=== PATIENT | female | born 1985 | race African-American/Black ===

== ENCOUNTER 2019-12-06 23:12 | Emergency (ER) | payer MEDICAID ==
[~2019-12-06] VITALS: Ht 167.6 cm; Wt 81.6 kg
[2019-12-06 23:35] VITALS: BP 120/63
[2019-12-06] MEDS ORDERED: levETIRAcetam 500 MG TAB PO ONE (23:45)
[2019-12-06] MEDS ORDERED: ONDANSETRON ODT 4 MG TAB PO ONE (23:45)
[2019-12-06] MEDS ORDERED: ACETAMINOPHEN 325 MG TAB PO ONE (23:45)
[2019-12-06] MEDS ORDERED: TOPIRAMATE 25 MG TAB PO ONE (23:45)
[2019-12-07 00:52] LABS: Basophils # (auto) 0 10 ^3/uL (0-0.2); Basophils % (auto) 0.3 % (0.0-2.0); Eosinophils # (auto) 0 10 ^3/uL (0-0.8); Hematocrit 39.4 % (36.0-46.0); Hemoglobin 13.2 g/dL (12.2-16.2); Lymphocytes # (auto) 1.1 10 ^3/uL (0.4-5.4); Lymphocytes % (auto) 11.3 % (10.0-50.0); Mean Corpuscular Hemoglobin 29.3 pg (28.0-32.0); Mean Corpuscular Hgb Conc. 33.5 g/dL (32.0-36.0); Mean Corpuscular Volume 87.5 fL (80.0-100.0); Monocytes # (auto) 0.6 10 ^3/uL (0-1.3); Monocytes % (auto) 6.1 % (0.0-12.0); Neutrophils # (auto) 8.3 10 ^3/uL (1.6-8.6); Neutrophils % (auto) 82.3 % (37.0-80.0); Nucleated Red Blood Cells % 0.1 %; Platelet Count (auto) 307 10^3/uL (140-450); White Blood Cell 10.1 10^3/uL (4.4-10.8)
[2019-12-07 01:14] LABS: Albumin 4.3 g/dL (3.4-5.0); BUN/Creatinine Ratio 22.4; Calcium 9.1 mg/dL (8.5-10.1); Potassium 3.4 mmol/L (3.5-5.1)
[2019-12-07 01:17] LABS: Bilirubin, Total 0.5 mg/dL (0.2-1.0); Total Protein 8.3 g/dL (6.4-8.2)
[2019-12-07 01:38] LABS: Urine Bacteria FEW /hpf (None Seen); Urine Blood Negative /uL (Negative); Urine Hyaline Cast FEW /lpf (0 - 2); Urine Mucus FEW (None Seen); Urine Specific Gravity 1.017 (1.001-1.035); Urine WBC 7 /hpf (0 - 5)
[2019-12-07 01:50] LABS: Alcohol, Urine < 3.0 mg/dL (0-10); Amphetamine Screen, Urine NEGATIVE (NEGATIVE); Barbiturate Scree,Urine NEGATIVE (NEGATIVE); Benzodiazephine Screen, Urine NEGATIVE (NEGATIVE); Cannabinoid Screen, Urine POSITIVE (NEGATIVE); Cocaine Screen, Urine NEGATIVE (NEGATIVE); Opiate Scree,Urine NEGATIVE (NEGATIVE); Phencyclidine Screen, Urine NEGATIVE (NEGATIVE)
[2019-12-07] MEDS ORDERED: POTASSIUM CHL 20 Meq TABLET PO ONE ×2 (02:00→02:03)
[2019-12-07] MEDS ORDERED: HYDROcodone-ACET 5/325MG TAB PO ONE (02:15)
== END 2019-12-07 02:43 ==
LOC: ER 23:15
DX: S16.1XXA Strain of muscle, fascia and tendon at neck level, initial encounter (principal); S60.212A Contusion of left wrist, initial encounter; S60.211A Contusion of right wrist, initial encounter; S39.012A Strain of muscle, fascia and tendon of lower back, initial encounter; S23.41XA Sprain of ribs, initial encounter; F12.10 Cannabis abuse, uncomplicated; G44.209 Tension-type headache, unspecified, not intractable; Z71.51 Drug abuse counseling and surveillance of drug abuser; W22.8XXA Striking against or struck by other objects, initial encounter; Y93.89 Activity, other specified; Y92.89 Other specified places as the place of occurrence of the external cause; Y99.8 Other external cause status
CPT/HCPCS: 36415; 70450; 71250; 72125; 73100; 74176; 80053; 80307; 81001; 84484; 85025; 93005; 99285; Q0162; 96365

== ENCOUNTER 2020-10-18 09:53 | Emergency (ER) | payer MEDICAID, OTHER ==
[~2020-10-18] VITALS: Ht 177.8 cm; Wt 72.6 kg
[2020-10-18] MEDS ORDERED: HYDROcodone-ACET 5/325MG TAB PO ONE (13:00)
[2020-10-18 16:08] VITALS: BP 108/69
== END 2020-10-18 16:51 | disposition home or self-care (01) ==
LOC: EDBD 09:53 → ER 09:53
DX: R56.9 Unspecified convulsions (principal); M79.10 Myalgia, unspecified site; M79.602 Pain in left arm; M25.561 Pain in right knee; V49.9XXA Car occupant (driver) (passenger) injured in unspecified traffic accident, initial encounter; Y93.89 Activity, other specified; Y92.89 Other specified places as the place of occurrence of the external cause; Y99.8 Other external cause status
CPT/HCPCS: 70450; 73060; 73080; 73562; 81025